=== PATIENT | male | born 1985 | race African-American/Black ===

== ENCOUNTER 2023-10-02 12:19 | Inpatient (IN) | payer OTHER ==
[2023-10-02 12:41] VITALS: BMI 24.3
[2023-10-02] MEDS ORDERED: NALOXONE (NARCAN) HCL 4 MG/0.1 ML SPRAY NS PRN (16:50)
[2023-10-02] MEDS ORDERED: BENZONATATE 200 MG CAPSULE PO PRN (16:50)
[2023-10-02] MEDS ORDERED: BENZOCAINE/MENTHOL (CHLORASEPTIC ) LOZENGE MM PRN (16:50)
[2023-10-02] MEDS ORDERED: DICYCLOMINE HCL 10 MG CAPSULE PO PRN (16:50)
[2023-10-02] MEDS ORDERED: BISMUTH SUBSALICYLATE 524 MG/30 ML PO PRN (16:50)
[2023-10-02] MEDS ORDERED: MAGNESIUM HYDROX 2400MG/30ML ORAL SUSPENSION 30 ML CUP PO PRN (16:50)
[2023-10-02] MEDS ORDERED: NICOTINE POLACRILEX 2 MG GUM BUC PRN (16:50)
[2023-10-02] MEDS ORDERED: hydrOXYzine PAMOATE 25 MG CAPSULE (FP) PO PRN (16:50)
[2023-10-02] MEDS ORDERED: ONDANSETRON *ODT* 4 MG TABLET SL PRN (16:50)
[2023-10-02] MEDS ORDERED: NALOXONE HCL 0.4 MG/ML VIAL IM PRN (16:50)
[2023-10-02] MEDS ORDERED: guaiFENesin 600 MG TABLET.ER (FP) PO PRN (16:50)
[2023-10-02] MEDS ORDERED: ACETAMINOPHEN 325 MG TABLET (FP) PO PRN (16:50)
[2023-10-02] MEDS ORDERED: IBUPROFEN 400 MG TABLET (FP) PO PRN (16:50)
[2023-10-02] MEDS ORDERED: POLYETHYLENE GLYCOL (HEALTHYLAX) 3350 17 GM PACKET PO PRN (16:50)
[2023-10-02] MEDS: THIAMINE 100 MG TABLET PO SCH (22:48)
[2023-10-02] MEDS: METHOCARBAMOL 500 MG TABLET PO PRN (22:48)
[2023-10-02] MEDS: MELATONIN 5 MG TABLETS PO SCH (22:48)
[2023-10-03] MEDS: BICTEGRAV/EMTRICIT/TENOFOV (BIKTARVY) 50-200-25 MG TABLET PO SCH (08:01)
[2023-10-03] MEDS: NICOTINE 14 MG/24 HOURS TOPICAL PATCH TD SCH (10:05)
[2023-10-03] MEDS: PRENATAL VITAMINS W/ FOLIC ACID TABLET (FP) PO SCH (10:05)
[2023-10-03 10:20] LABS: HEMATOCRIT 44.9 % (35.4-49); HEMOGLOBIN 14.6 GM/dL (11.7-16.9); MCH 27.8 pg (25.7-33.7); MCHC 32.6 g/dl (32.0-35.9); MEAN PLT VOLUME 7.5 fl (7.5-11.1); PLATELET COUNT 266 10^3/uL (134-434); RBC 5.28 M/mm3 (4.00-5.60); RDW 15.5 % (11.9-15.9); WHITE BLOOD COUNT 9.5 K/mm3 (4.0-10.0)
[2023-10-03 10:29] LABS: CHLORIDE 102 mmol/L (98-107); POTASSIUM 4.5 mmol/L (3.5-5.1); SODIUM 134 mmol/L (136-145)
[2023-10-03 10:46] LABS: CALCIUM 9.5 mg/dL (8.5-10.1)
[2023-10-03 10:47] LABS: ANION GAP 6 mmol/L (4-13); CO2 26 mmol/L (21-32); GLUCOSE,RANDOM 97 mg/dL (74-106); SGOT/AST 19 U/L (15-37); SGPT/ALT 22 U/L (13-61)
[2023-10-03 10:49] LABS: BILIRUBIN,TOTAL 0.4 mg/dL (0.2-1)
[2023-10-03 10:50] LABS: TOT PROT 8.6 g/dl (6.4-8.2)
[2023-10-03 10:51] LABS: ALK PHOS 112 U/L (45-117)
[2023-10-03] MEDS ORDERED: PENICILLIN G BENZATHINE 2,400,000 UNIT/4 ML PFS IM ONE (15:36)
[2023-10-03] MEDS: IBUPROFEN 600 MG TABLET (FP) PO PRN (17:23)
[2023-10-03] MEDS: PENICILLIN G BENZATHINE 2,400,000 UNIT/4 ML PFS IM ONE (17:45)
[2023-10-03] MEDS: MAG HYDROX/AL HYDROX/SIMETH 30 ML UNIT-DOSE CUP PO PRN (21:24)
[2023-10-03] MEDS: LOPERAMIDE HCL 2 MG CAPSULE PO PRN (22:35)
[2023-10-04 12:27] VITALS: BP 123/83; PULSE 87; RESP 18; TEMP 97.7
== END 2023-10-04 13:46 | disposition home or self-care (01) | DRG 774 ==
LOC: YASAS 12:19 → Y6N 17:08
PROVIDERS: ADMIT Allergy & Immunology; ATTEND Surgery
PROC: HZ2ZZZZ Detoxification Services for Substance Abuse Treatment (ICD-10-PCS; principal; 2023-10-02)
DX: F10.230 Alcohol dependence with withdrawal, uncomplicated (principal); F14.20 Cocaine dependence, uncomplicated; F12.20 Cannabis dependence, uncomplicated; F17.210 Nicotine dependence, cigarettes, uncomplicated; F25.9 Schizoaffective disorder, unspecified; F19.982 Other psychoactive substance use, unspecified with psychoactive substance-induced sleep disorder; I10 Essential (primary) hypertension; Z21 Asymptomatic human immunodeficiency virus [HIV] infection status; Z88.8 Allergy status to other drugs, medicaments and biological substances; Z86.19 Personal history of other infectious and parasitic diseases; Z91.51 Personal history of suicidal behavior; Z56.0 Unemployment, unspecified; Z59.01 Sheltered homelessness
CPT/HCPCS: 36415; 80053; 80305; 80307; 82962; 85027; 86593; 86780; 93005; 93010